=== PATIENT | male | born 1955 | race Caucasian/White ===

== ENCOUNTER 2016-11-02 11:00 | Day surgery (SDC) | payer OTHER ==
[~2016-11-02 11:00] MED LIST: ACETAMINOPHEN WITH CODEINE 1 EACH TABLET PO PRN; KETOROLAC TROMETHAMINE 15 MG/ML VIAL IV PRN; MORPHINE SULFATE 2 MG/ML DISP.SYRIN IV PRN; ONDANSETRON HCL/PF 2 MG/ML VIAL IV PRN; OXYBUTYNIN CHLORIDE 5 MG TABLET PO PRN; ceFAZolin SODIUM 1 GM in DEXTROSE 5 % IN WATER 100 ML IV PRN; oxyCODONE HCL/ACETAMINOPHEN 1 TAB TABLET PO PRN
[2016-11-02] MEDS ORDERED: RINGERS SOLUTION,LACTATED 1,000 ML IV ONE (12:00)
[2016-11-02 15:00] VITALS: BP 132/85
== END 2016-11-02 11:01 | disposition home or self-care (01) ==
LOC: AMB 11:00
PROVIDERS: ATTEND Urology
PROC: 0T778DZ Dilation of Left Ureter with Intraluminal Device, Via Natural or Artificial Opening Endoscopic (ICD-10-PCS; 2016-11-02)
PROC: 0TC78ZZ Extirpation of Matter from Left Ureter, Via Natural or Artificial Opening Endoscopic (ICD-10-PCS; 2016-11-02)
PROC: 0T778ZZ Dilation of Left Ureter, Via Natural or Artificial Opening Endoscopic (ICD-10-PCS; 2016-11-02)
PROC: 0TF78ZZ Fragmentation in Left Ureter, Via Natural or Artificial Opening Endoscopic (ICD-10-PCS; principal; 2016-11-02 12:10)
DX: N20.1 Calculus of ureter (principal); N13.5 Crossing vessel and stricture of ureter without hydronephrosis; E11.9 Type 2 diabetes mellitus without complications; I10 Essential (primary) hypertension; E03.9 Hypothyroidism, unspecified; Z68.31 Body mass index [BMI] 31.0-31.9, adult

== ENCOUNTER 2016-11-09 07:17 | Day surgery (SDC) | payer OTHER ==
[~2016-11-09 07:17] MED LIST changes: -ACETAMINOPHEN WITH CODEINE 1 EACH TABLET PO PRN; +CIPROFLOXACIN HCL 500 MG TABLET PO PRN; -KETOROLAC TROMETHAMINE 15 MG/ML VIAL IV PRN; -MORPHINE SULFATE 2 MG/ML DISP.SYRIN IV PRN; -ONDANSETRON HCL/PF 2 MG/ML VIAL IV PRN; -OXYBUTYNIN CHLORIDE 5 MG TABLET PO PRN; +RINGERS SOLUTION,LACTATED 1,000 ML IV PRN; -ceFAZolin SODIUM 1 GM in DEXTROSE 5 % IN WATER 100 ML IV PRN; -oxyCODONE HCL/ACETAMINOPHEN 1 TAB TABLET PO PRN
[2016-11-09] MEDS ORDERED: RINGERS SOLUTION,LACTATED 1,000 ML IV ONE (08:02)
[2016-11-09] MEDS ORDERED: LIDOCAINE HCL 10 APPL CARTRIDGE TP ONE (08:55)
[2016-11-09 10:06] VITALS: BP 153/98
== END 2016-11-09 07:18 | disposition home or self-care (01) ==
LOC: AMB 07:17
PROVIDERS: ATTEND Urology
PROC: 0TP98DZ Removal of Intraluminal Device from Ureter, Via Natural or Artificial Opening Endoscopic (ICD-10-PCS; principal; 2016-11-09 08:35)
DX: N20.1 Calculus of ureter (principal); I10 Essential (primary) hypertension; E11.9 Type 2 diabetes mellitus without complications; E03.9 Hypothyroidism, unspecified; Z68.31 Body mass index [BMI] 31.0-31.9, adult